=== PATIENT | female | born 1970 | race Caucasian/White ===

== ENCOUNTER → 2016-02-19 | Outpatient (CLI) | payer OTHER ==
--- OUTSIDE RECORDS SUMMARY | 2016-02-19 13:28 | XMS REPORT ---
Author Author Sona Blanton Organization [employer] Address Unknown Phone Unavailable Care Team Providers Care Licensed Guide Name Role Phone Sona Blanton CP Unavailable Allergies, Adverse Reactions, Alerts Substance Reaction Event Type Penicillin Info Not Available Drug Allergy Problems Problem Type Condition Code Onset Dates Condition Status Assessment Melanocytic nevi of trunk D22.5 Active Assessment Lentigines L81.4 Active Problem Infiltrative basal cell carcinoma C44.91 Active Assessment Other seborrheic keratosis L82.1 Active Assessment Infiltrative basal cell carcinoma C44.91 Active Assessment Actinic keratosis L57.0 Active Assessment 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 Medications Medication Code System Code Instructions Start Date End Date Status Dosage Ambien [facility] [id number] not defined Fiber NDC 0 not defined Prilosec [facility] [address]-88 not defined Efudex [facility] [address]-48 5 % Externally Twice a day Nov 04, 2015 1 application to affected area Procedures Procedure Coding System Code Date Office Consultation Level 3 CPT-4 25653 Nov 04, 2015 BIOPSY OF SKIN LESION CPT-4 61451 Nov 04, 2015 Vital Signs Date/Time: Nov 04, 2015 Blood Pressure Diastolic 72 mm Hg Blood Pressure Systolic 105 mm Hg Cardiac Monitoring Heart Rate 80 /min BMI 31.09 Index Weight 170 lbs Height 62 in Results No Known Results Summary Purpose [employer] Submission
--- NOTE | 2016-02-23 09:53 | Diagnostic Imaging Report ---
Bilateral screening mammogram The current study was also evaluated with a Computer Aided Detection (CAD) system. Indication: Screening. No current complaints stated on the questionnaire. COMPARISON: 12/19/14. FINDINGS: The breasts are composed of heterogeneously dense parenchyma which may decrease mammographic sensitivity. No mass, architectural distortion or suspicious cluster of calcification seen. Allowing for technique and positional differences, no suspicious change is seen. IMPRESSION: No significant change. ACR BI-RADS Category 2: Benign findings. Result letter will be mailed to the patient. Note: At least 10% of breast cancer is not imaged by mammography. Dictated by: Dictated on workstation # [id number]
== END ==
LOC: RAD 13:25
PROVIDERS: ATTEND Nurse Practitioner
DX: Z12.31 Encounter for screening mammogram for malignant neoplasm of breast (principal)

== ENCOUNTER → 2017-05-25 | Outpatient (CLI) | payer OTHER ==
--- NOTE | 2017-05-25 13:19 | Diagnostic Imaging Report ---
INDICATION: Routine screening. Comparison is made with prior exam from 02/19/2016 and 12/19/2014. The current study was also evaluated with a Computer Aided Detection (CAD) system. Both breasts are heterogeneously dense, limiting the sensitivity of mammography. The parenchymal pattern appears stable. No dominant mass or malignant appearing microcalcifications are seen. The axilla are unremarkable. IMPRESSION: BI-RADS category one No mammographic features suspicious for malignancy are identified. ACR BI-RADS Category 1: Negative. Result letter will be mailed to the patient. Note: At least 10% of breast cancer is not imaged by mammography. Dictated by: Dictated on workstation # [id number]
== END ==
LOC: RAD 11:05
PROVIDERS: ATTEND Nurse Practitioner
DX: Z12.31 Encounter for screening mammogram for malignant neoplasm of breast (principal)
CPT/HCPCS: 77067

== ENCOUNTER → 2017-12-18 | Outpatient (CLI) | payer BC, OTHER | LOC: CARD 07:54 | PROVIDERS: ATTEND Internal Medicine Interventional Cardiology | DX: I49.3 Ventricular premature depolarization (principal); R00.1 Bradycardia, unspecified; R06.02 Shortness of breath; E66.9 Obesity, unspecified | CPT/HCPCS: 93225; 93226 ==

== ENCOUNTER 2018-01-22 09:30 | Outpatient (RCR) | payer BC, OTHER | END 2018-03-25 | disposition home or self-care (01) | LOC: CARD 09:30 | PROVIDERS: ATTEND Internal Medicine Interventional Cardiology | DX: I49.3 Ventricular premature depolarization (principal); R06.02 Shortness of breath; R00.1 Bradycardia, unspecified; E66.9 Obesity, unspecified | CPT/HCPCS: 93270; 93306 ==

== ENCOUNTER → 2018-08-10 | Outpatient (CLI) | payer BC ==
--- NOTE | 2018-08-13 09:07 | Diagnostic Imaging Report ---
INDICATION: Screening. TECHNIQUE: The current study was also evaluated with a Computer Aided Detection (CAD) system. 3D Tomographic imaging was also performed. COMPARISON: 05/25/2017, 02/19/2016, and 12/19/2014. FINDINGS: There are scattered fibroglandular densities bilaterally. There is no dominant mass, spiculated lesion, or suspicious calcification identified. The skin, nipples, and axillae are unremarkable. IMPRESSION: Negative. ACR BI-RADS Category 1: Negative. Result letter will be mailed to the patient. Note: At least 10% of breast cancer is not imaged by mammography. Dictated by: Dictated on workstation # [id number]
== END ==
LOC: RAD 13:36
PROVIDERS: ATTEND Nurse Practitioner
DX: Z12.31 Encounter for screening mammogram for malignant neoplasm of breast (principal); Z01.419 Encounter for gynecological examination (general) (routine) without abnormal findings
CPT/HCPCS: 77067

== ENCOUNTER → 2019-01-11 | Outpatient (CLI) | payer BC ==
--- NOTE | 2019-01-11 12:55 | Diagnostic Imaging Report ---
INDICATION: Pruritus. Evaluate for possible lung cancer. FINDINGS: 2 views of the chest demonstrate the lungs to be clear. Heart and vascularity are normal. There are no pleural effusions. IMPRESSION: Negative chest. Dictated by: Dictated on workstation # [id number]
== END ==
LOC: RAD 12:14
DX: L29.9 Pruritus, unspecified (principal)
CPT/HCPCS: 71046

== ENCOUNTER → 2019-02-27 | Outpatient (CLI) | payer BC, OTHER ==
--- NOTE | 2019-02-27 14:23 | Diagnostic Imaging Report ---
INDICATION: Palpable lump in the outer left breast. COMPARISON: Correlation is made with the prior mammograms from 08/10/2018 and 05/25/2017. TECHNIQUE: Unilateral left 2D and 3D diagnostic mammography was performed with CAD. A BB marker was placed at the area of palpable abnormality in the far lateral left breast. FINDINGS: The left breast remains heterogeneously dense, limiting the sensitivity of mammography. No dominant mass or malignant appearing microcalcifications are seen. The left axilla is unremarkable. IMPRESSION: No mammographic features suspicious for malignancy are identified. Even so, directed sonographic interrogation of the area of palpable abnormality in the left breast is recommended and will be performed today. ACR BI-RADS Category 0: Incomplete. (Needs additional imaging evaluation). Result letter will be mailed to the patient. Note: At least 10% of breast cancer is not imaged by mammography. Dictated by: Dictated on workstation # [id number]
--- NOTE | 2019-02-27 14:53 | Diagnostic Imaging Report ---
INDICATION: Palpable lump in the lateral left breast. TECHNIQUE/COMPARISON: Sonographic interrogation of the outer left breast was performed and compared with the diagnostic mammogram from earlier today. FINDINGS: No sonographic abnormality is seen. No solid or cystic mass is detected. IMPRESSION: No sonographic abnormality is seen. Continued close clinical and self breast exams are recommended to confirm stability of the palpable abnormality. ACR BI-RADS Category 1: Negative. Dictated by: Dictated on workstation # [id number]
== END ==
LOC: RAD 13:51
PROVIDERS: ATTEND Nurse Practitioner
DX: N63.23 Unspecified lump in the left breast, lower outer quadrant (principal)
CPT/HCPCS: 76642

== ENCOUNTER → 2019-06-05 | Outpatient (CLI) | payer OTHER ==
--- NOTE | 2019-06-05 14:56 | Diagnostic Imaging Report ---
INDICATION: Neck pain and upper back pain. TIME OF EXAM: 2:41 PM. TECHNIQUE: Three views of the cervical spine were obtained. FINDINGS: There is straightening of the normal cervical lordotic curvature. Minimal retrolisthesis of C4 on C5 is noted. There is significant degenerative disc disease identified at the C4-5, C5-6, and C6-7 levels. There is significant disc space narrowing as well as marginal osteophyte formation. The prevertebral tissues are normal. No fractures are seen. The odontoid appears intact. IMPRESSION: Cervical spondylosis. No acute bony abnormality is detected. Dictated by: Dictated on workstation # [id number]
--- NOTE | 2019-06-05 14:59 | Diagnostic Imaging Report ---
INDICATION: Upper back pain. TIME OF EXAM: 2:43 PM. TECHNIQUE: Frontal and lateral views of the thoracic spine were obtained. FINDINGS: There is left convexity scoliotic curvature in the upper thoracic spine. There is normal kyphotic curvature. The vertebral body heights are maintained. No fracture is seen. The pedicles and paraspinous line are intact. There are postop changes of lap band surgery in the upper abdomen. IMPRESSION: Thoracic scoliosis. No acute bony abnormality is detected. Dictated by: Dictated on workstation # [id number]
== END ==
LOC: RAD 14:22
PROVIDERS: ATTEND Family Medicine
DX: M47.812 Spondylosis without myelopathy or radiculopathy, cervical region (principal); M41.9 Scoliosis, unspecified
CPT/HCPCS: 72040; 72072

== ENCOUNTER → 2020-08-06 | Outpatient (CLI) | payer OTHER ==
--- NOTE | 2020-08-06 13:40 | Diagnostic Imaging Report ---
Indication: Left ankle pain AP, oblique and lateral views of the left ankle are obtained. FINDINGS: No acute fracture or dislocation is identified. No abnormal lytic or sclerotic focus is seen, and there is no radiopaque foreign body. IMPRESSION: No acute abnormality. Dictated by: Dictated on workstation # [id number]
== END ==
LOC: RAD 12:02
PROVIDERS: ATTEND Family Medicine
DX: M25.572 Pain in left ankle and joints of left foot (principal)
CPT/HCPCS: 73610